=== PATIENT | male | born 1985 | race African-American/Black ===

== ENCOUNTER 2016-03-12 20:18 | Emergency (ER) | payer OTHER ==
[~2016-03-12] VITALS: Ht 177.8 cm; Wt 79.4 kg
[~2016-03-12 20:18] MED LIST: CYCLOBENZAPRINE5 MG PO; IBUPROFEN 800800 M1 PO; METHOCARBAMOL500 M2 PO; NAPROSYN500 MG PO; NOHOMEMEDICATIONS; NORCO 5-325 TA1 EACH PO; SILVADENE20 GM TP
[2016-03-12] MEDS ORDERED: ACETAMINOPHEN-1 EAC1 PO (22:51)
[2016-03-12 23:45] VITALS: BP 121/64
== END 2016-03-12 23:45 | disposition home or self-care (01) ==
LOC: ER 20:18
DX: S01.81XA Laceration without foreign body of other part of head, initial encounter (principal); S09.90XA Unspecified injury of head, initial encounter; S40.011A Contusion of right shoulder, initial encounter; S06.0X9A Concussion with loss of consciousness of unspecified duration, initial encounter; F17.210 Nicotine dependence, cigarettes, uncomplicated; F10.99 Alcohol use, unspecified with unspecified alcohol-induced disorder; W31.1XXA Contact with metalworking machines, initial encounter; Y93.89 Activity, other specified; Y92.9 Unspecified place or not applicable; Y99.9 Unspecified external cause status

== ENCOUNTER 2016-06-18 14:02 | Emergency (ER) | payer OTHER ==
[~2016-06-18] VITALS: Ht 177.8 cm; Wt 74.8 kg
[~2016-06-18 14:02] MED LIST changes: +ACETAMINOPHEN-1 EAC1 PO
[2016-06-18 14:07] VITALS: BP 145/89
[2016-06-18] MEDS ORDERED: ZYRTEC10 M2 PO (14:21)
[2016-06-18] MEDS ORDERED: PREDNISONE 20 M20 MG PO (14:21)
[2016-06-18] MEDS ORDERED: KEFLEX500 MG PO (14:21)
== END 2016-06-18 14:49 | disposition home or self-care (01) ==
LOC: ER 14:02
DX: S50.862A Insect bite (nonvenomous) of left forearm, initial encounter (principal); F17.210 Nicotine dependence, cigarettes, uncomplicated; W57.XXXA Bitten or stung by nonvenomous insect and other nonvenomous arthropods, initial encounter; Y93.89 Activity, other specified; Y92.89 Other specified places as the place of occurrence of the external cause; Y99.9 Unspecified external cause status

== ENCOUNTER 2016-10-01 02:55 | Emergency (ER) | payer OTHER ==
[~2016-10-01] VITALS: Ht 172.7 cm; Wt 72.6 kg
[~2016-10-01 02:55] MED LIST changes: +KEFLEX500 MG PO; +PREDNISONE 20 M20 MG PO; +ZYRTEC10 M2 PO
[2016-10-01 03:15] VITALS: BP 141/92
[2016-10-01] MEDS ORDERED: NORCO 5-325 TA1 EACH PO (03:38)
== END 2016-10-01 04:03 | disposition home or self-care (01) ==
LOC: ER 02:55
DX: S40.212A Abrasion of left shoulder, initial encounter (principal); F17.210 Nicotine dependence, cigarettes, uncomplicated; F10.99 Alcohol use, unspecified with unspecified alcohol-induced disorder; V29.9XXA Motorcycle rider (driver) (passenger) injured in unspecified traffic accident, initial encounter; Y93.I9 Activity, other involving external motion; Y92.89 Other specified places as the place of occurrence of the external cause; Y99.8 Other external cause status

== ENCOUNTER 2017-05-07 14:53 | Emergency (ER) | payer OTHER ==
[~2017-05-07] VITALS: Ht 172.7 cm; Wt 79.4 kg
[2017-05-07] MEDS ORDERED: NORCO 5-325 TA1 EACH PO (15:25)
[2017-05-07] MEDS ORDERED: NAPROSYN500 MG PO (15:25)
== END 2017-05-07 15:45 | disposition home or self-care (01) ==
LOC: ER 14:53
DX: S89.82XA Other specified injuries of left lower leg, initial encounter (principal); F17.210 Nicotine dependence, cigarettes, uncomplicated; W17.89XA Other fall from one level to another, initial encounter; Y93.89 Activity, other specified; Y92.830 Public park as the place of occurrence of the external cause; Y99.8 Other external cause status

== ENCOUNTER → 2020-11-28 | Emergency (ER) | payer OTHER ==
[~2020-11-28] VITALS: Ht 165.1 cm; Wt 79.8 kg
[2020-11-28 14:06] VITALS: BP 130/91
--- NOTE | 2020-11-29 12:06 | EKG ---
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
== END ==
LOC: ER 13:10
DX: R51.9 Headache, unspecified (principal); I10 Essential (primary) hypertension; Z53.21 Procedure and treatment not carried out due to patient leaving prior to being seen by health care provider